=== PATIENT | male | born 1935 | race Caucasian/White ===

== ENCOUNTER 2016-07-05 15:13 | Inpatient (IN) | payer MEDICARE, MEDICAID ==
[~2016-07-05] VITALS: Ht 182.9 cm; Wt 90.4 kg
[~2016-07-05 15:13] MED LIST: AZIT500T2 PO; CHOL400T11 PO; DULO20CA PO; GABA-532 PO; GUAI100S11 PO; Hydralazine Hcl PO; Ipratropium Bromide NEB; LEVA1.2524 IH; MECL-118 PO; NEBI5TAB8 PO; PRED2.5T PO; PRED20TA GT; PRED20TA PO; PRED50TA PO; PRED5TAB48 PO; ROSU20TA PO; TAMS0.4C34 PO; TRAM50TA2 PO
--- NOTE | 2016-07-05 15:25 | NUR ---
aaox3, bibra from home c/o hypertension, and blurry vision since this am, took medication for hypertension to no relief. skin is warm and dry. denies any chest pain. neuro intact. bilateral strong and equal charge preparation technician. face symmetrical. Max at BS for eval.
--- NOTE | 2016-07-05 15:26 | NUR ---
Patient assisted to hospital gown, placed on monitor. Will continuously monitor the patient.
[2016-07-05] MEDS ORDERED: hydrALAZINE HCL IV 20 MG VIAL ONE ×2 (15:30→16:28)
[2016-07-05] MEDS ORDERED: hydrALAZINE HCL IV 20 MG VIAL IV ONE ×2 (15:30→16:30)
[2016-07-05 15:33] LABS: BASOPHILS % (AUTO) 0.5 % (0.0-2.0); EOSINOPHILS # (AUTO) 0.2 /CMM (0.0-0.7); EOSINOPHILS % (AUTO) 2.8 % (0.0-6.0); HEMATOCRIT 39 % (39-51); HEMOGLOBIN 12.5 g/dL (13.5-17.5); LYMPHOCYTES # (AUTO) 1.3 /CMM (0.8-4.8); LYMPHOCYTES % (AUTO) 19.2 % (20.0-44.0); MEAN CORPUSCULAR HEMOGLOBIN 28 PG (26.0-33.0); MEAN CORPUSCULAR HGB CONC 32 g/dl (31.0-36.0); MEAN CORPUSCULAR VOLUME 87 fL (80-96); MONOCYTES # (AUTO) 0.7 /CMM (0.1-1.30); MONOCYTES % (AUTO) 9.4 % (2.0-12.0); NEUTROPHILS # (AUTO) 4.7 /CMM (1.8-8.9); NEUTROPHILS % (AUTO) 68.1 % (43.0-81.0); PLATELET COUNT (AUTO) 189 /CMM (150-450); RDW COEFFICIENT OF VARIATION 16.7 (11.5-15.0)
[2016-07-05 15:59] LABS: CALCIUM, SERUM 8.8 mg/dL (8.5-10.1); CARBON DIOXIDE 32 mmol/L (21-32); CHLORIDE 106 mmol/L (98-107); CREATININE 1.4 mg/dL (0.6-1.3); GLUCOSE 95 mg/dL (74-106); POTASSIUM 4.7 mmol/L (3.5-5.1); SODIUM SERUM 139 mmol/L (136-145); UREA NITROGEN, BLOOD 23 mg/dL (7-18)
--- NOTE | 2016-07-05 15:59 | NUR ---
RETORT OPERATOR AT BEDSIDE
[2016-07-05 16:04] LABS: PROTHROMBIN TIME 10.4 SECS (9.5-12.7)
[2016-07-05 16:07] LABS: TROPONIN I < 0.017 ng/mL (0.00-0.056)
[2016-07-05] MEDS ORDERED: AMLODIPINE BESYLATE 5 MG TABLET ONE (16:28)
[2016-07-05] MEDS ORDERED: AMLODIPINE BESYLATE 5 MG TABLET PO ONE (16:30)
--- NOTE | 2016-07-05 16:30 | NUR ---
Patient is resting comfortably in bed with eyes closed. Easily aroused. VSS
--- NOTE | 2016-07-05 17:22 | NUR ---
IV removed. Catheter intact and site benign. Pressure and 4x4 applied to site. No bleeding noted.Patient discharged to home in stable condition. Written and verbal after care instructions given. Patient verbalizes understanding of instruction.
--- NOTE | 2016-07-05 17:30 | NUR ---
Patient came out of the restroom and states that he doesn't feel well. Patient was assisted back to room. ER MD made aware. Current BP is 203/105
[2016-07-05] MEDS ORDERED: LABETALOL 20 MG/4 ML VIAL ONE (17:46)
[2016-07-05] MEDS ORDERED: ALBUTEROL FS 2.5 MG/3 ML VIAL.NEB ONE (17:57)
[2016-07-05] MEDS ORDERED: IPRATROPIUM NEB FS 0.5 MG/2.5 ML AMPUL.NEB ONE (17:57)
[2016-07-05] MEDS ORDERED: LABETALOL 20 MG/4 ML VIAL IV ONE (18:00)
[2016-07-05] MEDS ORDERED: IPRATROPIUM NEB FS 0.5 MG/2.5 ML AMPUL.NEB NEB ONE (18:00)
[2016-07-05] MEDS ORDERED: ALBUTEROL FS 2.5 MG/3 ML VIAL.NEB NEB ONE (18:00)
[2016-07-05] MEDS ORDERED: NEBI5TAB8 PO (18:03)
[2016-07-05] MEDS ORDERED: ERGO50003 PO (18:03)
[2016-07-05] MEDS ORDERED: CYAN1TAB4 PO (18:08)
[2016-07-05] MEDS ORDERED: DEXL30CA3 PO (18:08)
[2016-07-05] MEDS ORDERED: MELO-264 PO (18:08)
[2016-07-05] MEDS ORDERED: PRAM0.253 PO (18:08)
[2016-07-05] MEDS ORDERED: MEMA7CAP PO (18:08)
[2016-07-05] MEDS ORDERED: MONT10TA22 PO (18:08)
[2016-07-05] MEDS ORDERED: VORT10TA PO (18:10)
--- NOTE | 2016-07-05 18:10 | NUR ---
BREATHING TREATMENT AT
[2016-07-05] MEDS ORDERED: UMEC62.5 IH (18:11)
[2016-07-05] MEDS ORDERED: FLUT1BLS IH (18:11)
--- NOTE | 2016-07-05 19:02 | NUR ---
REPORT GIVEN GAYATRI STOUT FOR [facility] TELE 325-2
--- NOTE | 2016-07-05 19:05 | NUR ---
REPORT GIVEN TO GAYATRI QUINTANILLA FOR [facility].
--- NOTE | 2016-07-05 19:06 | NUR ---
RECEIVED REPORT FROM GAYATRI BRENNAN FOR CONTINUE OF CARE.
--- NOTE | 2016-07-05 19:16 | NUR ---
Madison steiner in [facility] - 07/05/16 at [address] LOONEY ON THE PHONE WITH DR ÓSCAR RUIZ
--- NOTE | 2016-07-05 19:18 | NUR ---
Madison steiner in [facility] - 07/05/16 at [address] LOONEY ON THE PHONE WITH DR MARISSA SANTORO
[2016-07-05] MEDS ORDERED: ZOLPIDEM TARTRATE 5 MG TABLET PO PRN (19:30)
[2016-07-05] MEDS ORDERED: Z GUARD REMEDY 2 OZ OINT TP PRN (19:30)
[2016-07-05] MEDS ORDERED: MAG HYDROX/AL HYDROX/SIMETH 30 ML UDC PO PRN (19:30)
[2016-07-05] MEDS ORDERED: ONDANSETRON HCL/PF 4 MG/2 ML VIAL IVP PRN (19:30)
[2016-07-05] MEDS ORDERED: ENOXAPARIN SODIUM 40 MG/0.4 ML DISP.SYRIN SQ SCH (19:30)
[2016-07-05] MEDS ORDERED: CLONIDINE HCL 0.1 MG TABLET PO PRN (19:30)
[2016-07-05] MEDS ORDERED: MAGNESIUM HYDROXIDE 30 ML UDC PO PRN (19:30)
[2016-07-05] MEDS ORDERED: HYDROCODONE/APAP 5/325MG 1 EACH TABLET PO PRN (19:30)
[2016-07-05 20:00] VITALS: BP 148/77
--- NOTE | 2016-07-05 20:08 | NUR ---
PT TRANSFERED PER [facility]S PROTOCOL.
[2016-07-05] MEDS ORDERED: ENOXAPARIN SODIUM 40 MG/0.4 ML DISP.SYRIN SQ ONE (20:28)
[2016-07-05] MEDS ORDERED: ATORVASTATIN 40 MG TABLET ONE (20:28)
[2016-07-05] MEDS ORDERED: ACETAMINOPHEN 325 MG TABLET ONE (20:29)
[2016-07-05] MEDS ORDERED: CARVEDILOL 6.25 MG TABLET ONE (20:31)
[2016-07-05] MEDS: ACETAMINOPHEN 325 MG TABLET PO PRN (20:41)
[2016-07-05] MEDS: ATORVASTATIN 40 MG TABLET PO SCH (20:41)
[2016-07-05] MEDS ORDERED: CARVEDILOL 6.25 MG TABLET PO SCH (21:00)
--- NOTE | 2016-07-05 21:25 | NUR ---
SEEN BY DR. CANTRELL, PATIENT HAS NO DISTRESS, DENIES CHEST PAIN.
[2016-07-05] MEDS ORDERED: IPRATROPIUM NEB FS 0.5 MG/2.5 ML AMPUL.NEB NEB PRN (22:00)
[2016-07-05 22:37] LABS: ABG BASE EXCESS 2.2 mmol/L; ABG OXYGEN SATURATION 91.1 % (92.0-98.5); ABG PCO2 41.1 mmHg (35.0-45.0); ABG PH 7.431 (7.350-7.450); ABG PO2 62.4 mmHg (75.0-100.0); ABG TOTAL HEMOGLOBIN 12.7 G/dL (13.5-18.0); AaDO2 38.1 mmHg; COHb 0.8 % (0.5-1.5); MetHb 0.7 % (0.0-1.5); O2Hb 89.7 % (94.0-97.0); SITE, ABG Right Radial; VENT MODE, BG Room Air
[2016-07-06] VITALS: BP 122/63
[2016-07-06] MEDS ORDERED: hydrALAZINE HCL 10 MG TABLET ONE (00:06)
--- NOTE | 2016-07-06 00:28 | NUR ---
HYDRALAZINE 50 MG PO HELD, BP 109/65 HR 69, PATIENT ALSO REFUSED STATING "MY BLOOD PRESSURE IS OK, I DON'T WANT IT TO BE SO LOW".
[2016-07-06 04:23] VITALS: BP 122/63
--- NOTE | 2016-07-06 06:00 | NUR ---
PATIENT GIVEN HYDRALAZINE 50 MG PO REQUESTED FOR ELEVATED BP
[2016-07-06] MEDS: hydrALAZINE HCL 10 MG TABLET PO SCH ×2 (06:14)
--- NOTE | 2016-07-06 06:39 | NUR ---
PATIENT IN BED, ALERT AND ORIENTED X4, CALM, NO SOB, NO DISTRESS, DENIES CHEST PAIN, ANY PAIN AT THIS TIME, ALL DUE MEDICATIONS GIVEN, KEPT SAFE AND COMFORTABLE, CALL LIGHT WITHIN REACH.
[2016-07-06 07:00] VITALS: BP 140/92
[2016-07-06] MEDS ORDERED: ENOXAPARIN SODIUM 40 MG/0.4 ML DISP.SYRIN SQ SCH (07:21)
[2016-07-06 07:41] LABS: BASOPHILS % (AUTO) 0.4 % (0.0-2.0); EOSINOPHILS # (AUTO) 0.3 /CMM (0.0-0.7); EOSINOPHILS % (AUTO) 4.3 % (0.0-6.0); HEMATOCRIT 38 % (39-51); HEMOGLOBIN 12.2 g/dL (13.5-17.5); LYMPHOCYTES # (AUTO) 1.2 /CMM (0.8-4.8); MEAN CORPUSCULAR HEMOGLOBIN 28 PG (26.0-33.0); MEAN CORPUSCULAR HGB CONC 33 g/dl (31.0-36.0); MEAN CORPUSCULAR VOLUME 87 fL (80-96); MONOCYTES # (AUTO) 0.6 /CMM (0.1-1.30); MONOCYTES % (AUTO) 9.2 % (2.0-12.0); NEUTROPHILS # (AUTO) 4.5 /CMM (1.8-8.9); NEUTROPHILS % (AUTO) 68.1 % (43.0-81.0); PLATELET COUNT (AUTO) 178 /CMM (150-450); RED BLOOD CELL COUNT(AUTO) 4.33 MIL/uL (4.5-6.0); WHITE BLOOD COUNT (AUTO) 6.6 K/uL (4.3-11.0)
--- NOTE | 2016-07-06 07:45 | NUR ---
LOGISTICS OPERATIONS DIRECTOR OPENING NOTE PATIENT IS ALERT AND ORIENTED x4. NO PAIN AT THIS TIME. NO SOB OR DISTRESS NOTED. IV INTACT AND PATENT NO REDNESS OR SWELLING NOTED. CALL LIGHT WITHIN REACH. SAFETY MEASURES IMPLEMENTED. ABLE TO COMMUNICATE NEEDS. ON 1L/MIN OF OXYGEN VIA NASAL CANNULA. ON TELE MONITORING. WILL CONTINUE TO MONITOR
[2016-07-06] MEDS: ACETAMINOPHEN 325 MG TABLET PO PRN (08:04)
[2016-07-06] MEDS: TAMSULOSIN 0.4 MG CAP.SR.24H PO SCH (08:05)
[2016-07-06] MEDS: PANTOPRAZOLE 40 MG TABLET.DR PO SCH (08:05)
[2016-07-06] MEDS: MONTELUKAST SODIUM (10MG) 10 MG TABLET PO SCH (08:05)
[2016-07-06] MEDS: MEMANTINE HCL 5 MG TABLET PO SCH (08:05)
[2016-07-06] MEDS: CARVEDILOL 12.5 MG TABLET PO SCH ×2 (08:06→21:03)
[2016-07-06] MEDS: AMLODIPINE BESYLATE 5 MG TABLET PO SCH (08:06)
[2016-07-06 08:08] LABS: THYROID STIMULATING HORMONE 1.74 uIU/mL (0.358-3.74)
[2016-07-06 08:50] LABS: CREATININE 1.4 mg/dL (0.6-1.3); MAGNESIUM 2.2 mg/dL (1.8-2.4); PHOSPHORUS 3.1 mg/dL (2.5-4.9); POTASSIUM 4.6 mmol/L (3.5-5.1)
--- NOTE | 2016-07-06 09:47 | NUR ---
MS RN NOTE PATIENT IS BEING TAKEN TO X-RAY TO HAVE CHEST X-RAY DONE. PATIENT IS STABLE. VITALS ARE STABLE. NO SOB OR DISTRESS NOTED. NO PAIN AT THIS TIME. WILL CONTINUE TO MONITOR PATIENT WHEN HE RETURNS FROM X-RAY
--- NOTE | 2016-07-06 10:00 | NUR ---
MS RN NOTE PATIENT IS BACK FROM X-RAY. PATIENT IS STABLE NO PAIN NOTED AT THIS TIME. NO SOB OR DISTRESS NOTED. WILL CONTINUE TO MONITOR PATIENT
--- NOTE | 2016-07-06 10:15 | NUR ---
MS RN NOTE PATIENT IS NO LONGER ON TELE MONITORING. WILL ENDORSE TO WARD SUPERVISOR NURSE
[2016-07-06] MEDS: ALBUTEROL FS 2.5 MG/0.5 ML VIAL.NEB NEB PRN (10:33)
[2016-07-06] MEDS: hydrALAZINE HCL 50 MG TABLET PO SCH ×2 (12:15→17:51)
[2016-07-06 16:44] VITALS: BP 122/68
[2016-07-06] MEDS: PRAMIPEXOLE DI-HCL 0.25 MG TABLET PO SCH (17:51)
--- NOTE | 2016-07-06 18:45 | NUR ---
MS RN CLOSING NOTE PATIENT IS ALERT AND ORIENTED x4. NO PAIN AT THIS TIME. NO SOB OR DISTRESS NOTED. ALL DUE MEDICATION GIVEN ORDERED. CALL LIGHT WITHIN REACH AT ALL TIMES. SAFETY MEASURES IMPLEMENTED. ABLE TO COMMUNICATE NEEDS. AMBULATES WITH ASSISTANCE. IV INTACT AND PATENT NO REDNESS OR SWELLING NOTED. WILL ENDORSE TO SVP GROUP DIRECTOR NURSE
[2016-07-06 20:00] VITALS: BP 128/71
[2016-07-06] MEDS: ENOXAPARIN SODIUM 40 MG/0.4 ML DISP.SYRIN SQ SCH (21:04)
[2016-07-06] MEDS: ATORVASTATIN 40 MG TABLET PO SCH (21:05)
[2016-07-06] MEDS: DOXAZOSIN MESYLATE (1 MG) 1 MG TABLET PO SCH (22:00)
--- NOTE | 2016-07-06 22:00 | NUR ---
PATIENT AWAKE AND ALLERT REFUSED CORDURA 2 MG D/T LOW BP OFFERED .
--- NOTE | 2016-07-07 | NUR ---
PATIENT AWAKE AND ALERT .REFUSED APRESOLINE 50MG DUE TO LOW BP 105/53
[2016-07-07] MEDS: hydrALAZINE HCL 50 MG TABLET PO SCH ×5 (05:48→23:28)
[2016-07-07 07:24] LABS: BASOPHILS % (AUTO) 0.3 % (0.0-2.0); EOSINOPHILS # (AUTO) 0.2 /CMM (0.0-0.7); EOSINOPHILS % (AUTO) 3.3 % (0.0-6.0); HEMATOCRIT 37 % (39-51); HEMOGLOBIN 12.1 g/dL (13.5-17.5); LYMPHOCYTES # (AUTO) 1.1 /CMM (0.8-4.8); LYMPHOCYTES % (AUTO) 16.5 % (20.0-44.0); MEAN CORPUSCULAR HEMOGLOBIN 28 PG (26.0-33.0); MEAN CORPUSCULAR HGB CONC 33 g/dl (31.0-36.0); MEAN CORPUSCULAR VOLUME 86 fL (80-96); MONOCYTES # (AUTO) 0.6 /CMM (0.1-1.30); MONOCYTES % (AUTO) 9.3 % (2.0-12.0); NEUTROPHILS # (AUTO) 4.7 /CMM (1.8-8.9); NEUTROPHILS % (AUTO) 70.6 % (43.0-81.0); PLATELET COUNT (AUTO) 186 /CMM (150-450); RED BLOOD CELL COUNT(AUTO) 4.31 MIL/uL (4.5-6.0); WHITE BLOOD COUNT (AUTO) 6.7 K/uL (4.3-11.0)
[2016-07-07 07:30] LABS: CREATININE 1.5 mg/dL (0.6-1.3); POTASSIUM 4.2 mmol/L (3.5-5.1)
--- NOTE | 2016-07-07 07:46 | NUR ---
MS/RN OPENING NOTE PT. IS LYING IN BED A&OX4. NO S/S OF DISTRESS, NO SOB, BREATHING ON ROOM AIR UNLABORED. BED IS IN LOW POSITION, 2 SIDE RAILS UP, CALL LIGHT WITHIN REACH, URINAL NEAR BEDSIDE, AND ALL NEEDS ATTENDED TO. REPORT GIVEN BY BULB BRANDER NURSE.
[2016-07-07 08:00] VITALS: BP_SYST 117; BP_SYST 122; BP_DIAS 72; BP_DIAS 78
[2016-07-07] MEDS: CARVEDILOL 12.5 MG TABLET PO SCH ×2 (09:00→21:42)
[2016-07-07] MEDS: AMLODIPINE BESYLATE 5 MG TABLET PO SCH (09:00)
[2016-07-07] MEDS: PANTOPRAZOLE 40 MG TABLET.DR PO SCH (10:00)
[2016-07-07] MEDS: MEMANTINE HCL 5 MG TABLET PO SCH (10:00)
[2016-07-07] MEDS: MONTELUKAST SODIUM (10MG) 10 MG TABLET PO SCH (10:00)
[2016-07-07] MEDS: TAMSULOSIN 0.4 MG CAP.SR.24H PO SCH (10:00)
[2016-07-07] MEDS: ALBUTEROL FS 2.5 MG/0.5 ML VIAL.NEB NEB PRN (12:55)
--- NOTE | 2016-07-07 13:50 | NUR ---
MS/RN RESPIRATORY THERAPIST INFORMED THAT PT. HAS FLUID IN LUNG OF THE RIGHT LOWER LOBE, AND PT'S BNP IS ABOVE NORMAL LIMIT. NOTIFIED AND DISCUSSED FINDINGS WITH MD, NO NEW ORDERS WERE GIVEN.
[2016-07-07] MEDS ORDERED: ACETYLCYSTEINE 10% 3,000 MG/30 ML VIAL PO SCH (14:30)
[2016-07-07 16:00] VITALS: BP 116/81
[2016-07-07] MEDS: PRAMIPEXOLE DI-HCL 0.25 MG TABLET PO SCH (17:37)
--- NOTE | 2016-07-07 18:00 | NUR ---
MS/RN ULTRASOUND OF THE LEFT BREAST PT. REFUSED BREAST ULTRASOUND PROCEDURE.
[2016-07-07 19:00] VITALS: BP 130/92
--- NOTE | 2016-07-07 19:30 | NUR ---
MS/RN CLOSING NOTE PT. IS LYING IN BED A&OX4. NO S/S OF SOB, BREATHING UNLABORED ON ROOM AIR. NO S/S OF DISTRESS. BED IS IN LOW POSITION, 2 SIDE RAILS UP, CALL LIGHT WITHIN REACH, AND ALL NEEDS ATTENDED TO. WILL ENDORSE REPORT TO STORE ADMINISTRATOR NURSE.
[2016-07-07 20:00] VITALS: BP 130/92
[2016-07-07] MEDS: DOXAZOSIN MESYLATE (1 MG) 1 MG TABLET PO SCH (21:42)
[2016-07-07] MEDS: ATORVASTATIN 40 MG TABLET PO SCH (21:42)
[2016-07-07] MEDS: ENOXAPARIN SODIUM 40 MG/0.4 ML DISP.SYRIN SQ SCH (21:43)
[2016-07-08] MEDS: hydrALAZINE HCL 50 MG TABLET PO SCH ×2 (05:43→12:00)
--- NOTE | 2016-07-08 05:45 | NUR ---
MS/RN NOTES b/p check with diastolic b/p less than 60. sbp 125 .
--- NOTE | 2016-07-08 07:05 | NUR ---
MS/RN OPENING NOTES PATIENT IN BED, ASLEEP BU AROUSES. NO S/S OF SOB OR DISTRESS. NO PAIN VERBALIZED. B/P CHECK, WILL ENDORSE TO AM RN REGARDING PLAN OF CARE. FAMILY REQUESTING TO BE DC.
[2016-07-08 08:00] VITALS: BP 156/96
--- NOTE | 2016-07-08 08:02 | NUR ---
Patient rounds and refuses to sign for medical records release for Doctor Jf MD, Cardiology and Doctor Marti MD with [facility] as requested by Doctor Parks. Claims machine sign writer made patient sick because so much blood was taken. Does not want to see Doctor Parks. Only wants to see Doctor Garza. Doctor Garza notified and will round on patient.
[2016-07-08 08:18] LABS: BASOPHILS % (AUTO) 0.3 % (0.0-2.0); EOSINOPHILS # (AUTO) 0.2 /CMM (0.0-0.7); EOSINOPHILS % (AUTO) 3.4 % (0.0-6.0); HEMATOCRIT 37 % (39-51); HEMOGLOBIN 12.1 g/dL (13.5-17.5); LYMPHOCYTES # (AUTO) 1.3 /CMM (0.8-4.8); LYMPHOCYTES % (AUTO) 19.9 % (20.0-44.0); MEAN CORPUSCULAR HEMOGLOBIN 28 PG (26.0-33.0); MEAN CORPUSCULAR HGB CONC 32 g/dl (31.0-36.0); MEAN CORPUSCULAR VOLUME 87 fL (80-96); MONOCYTES # (AUTO) 0.7 /CMM (0.1-1.30); MONOCYTES % (AUTO) 11.1 % (2.0-12.0); NEUTROPHILS # (AUTO) 4.2 /CMM (1.8-8.9); NEUTROPHILS % (AUTO) 65.3 % (43.0-81.0); PLATELET COUNT (AUTO) 174 /CMM (150-450); RDW COEFFICIENT OF VARIATION 17.1 (11.5-15.0); WHITE BLOOD COUNT (AUTO) 6.4 K/uL (4.3-11.0)
[2016-07-08 08:55] LABS: BILIRUBIN,TOTAL 0.5 mg/dL (0.2-1.0); CREATININE 1.7 mg/dL (0.6-1.3); POTASSIUM 4.4 mmol/L (3.5-5.1); TOTAL PROTEIN, SERUM 6.4 g/dL (6.4-8.2)
[2016-07-08 08:58] LABS: THYROID STIMULATING HORMONE 1.674 uIU/mL (0.358-3.74)
[2016-07-08] MEDS: CARVEDILOL 12.5 MG TABLET PO SCH ×2 (09:00→09:53)
[2016-07-08] MEDS: AMLODIPINE BESYLATE 5 MG TABLET PO SCH ×2 (09:00→09:52)
[2016-07-08] MEDS: MONTELUKAST SODIUM (10MG) 10 MG TABLET PO SCH (09:42)
[2016-07-08] MEDS: MEMANTINE HCL 5 MG TABLET PO SCH (09:42)
[2016-07-08] MEDS: PANTOPRAZOLE 40 MG TABLET.DR PO SCH (09:43)
[2016-07-08] MEDS: TAMSULOSIN 0.4 MG CAP.SR.24H PO SCH (09:43)
--- NOTE | 2016-07-08 09:55 | NUR ---
Patient conversation with daughter, Katie. Notes that patient would like to take his own bp med bystolic med. Notified daughter ok to use if verified with md today. Says go ahead and give presumed substitutes on emar at this time. Investigations Manager attempt to pass med. Patient took half dose and wants to take other half of am dose at later time. Investigations Manager recheck of bp and pulse at this time per patient request.
[2016-07-08 09:57] VITALS: BP 148/67
[2016-07-08] MEDS ORDERED: AMLO5TAB2 PO (10:56)
[2016-07-08] MEDS ORDERED: DOXA1TAB17 PO (10:56)
--- NOTE | 2016-07-08 12:10 | NUR ---
PATIENT DISCHARGE AND GIVEN INSTRUCTION. NO IV PRESENT. SITE D/C PREVIOUS TO SHIFT BEGINNING. PATIENT AMBULATORY FROM UNIT. GIVEN INFORMATION WITH PRESCRIPTIONS AND MEDICATION RECONCILIATION, CT CD, EKG CD, AND ALL LABWORK WITH EXIT CARE. INVENTORY OF PERSONAL BELONGINGS. PATIENT GIVEN DOCTOR LEVY PHONE NUMBER AND ADDRESS FOR FOLLOW UP IN ONE WEEK. WILL SEE DOCTOR KOLTON FOR DIZZINESS AND BLURRY VISION. AWARE OF RISK OF RENAL INSUFFICIENCY. VERBALIZES UNDERSTANDING OF INSTRUCTIONS GIVEN.
== END 2016-07-08 12:00 | disposition home or self-care (01) | DRG 77 ==
LOC: ER 15:15 → TELE 19:26 → MED 07-06 09:49
DX: I67.4 Hypertensive encephalopathy (principal); N17.0 Acute kidney failure with tubular necrosis; I12.9 Hypertensive chronic kidney disease with stage 1 through stage 4 chronic kidney disease, or unspecified chronic kidney disease; N18.9 Chronic kidney disease, unspecified; E11.22 Type 2 diabetes mellitus with diabetic chronic kidney disease; I25.10 Atherosclerotic heart disease of native coronary artery without angina pectoris; I16.0 Hypertensive urgency; E78.5 Hyperlipidemia, unspecified; D64.9 Anemia, unspecified; N40.0 Benign prostatic hyperplasia without lower urinary tract symptoms; Z85.118 Personal history of other malignant neoplasm of bronchus and lung; Z87.891 Personal history of nicotine dependence; J44.9 Chronic obstructive pulmonary disease, unspecified; R51 Headache; D63.8 Anemia in other chronic diseases classified elsewhere; R91.8 Other nonspecific abnormal finding of lung field
CPT/HCPCS: 36415; 36600; 70450-TC; 71010-TC; 71250-TC; 80048-TC; 80053-TC; 80061-TC; 82728-TC; 82746; 83540-TC; 83735-TC; 83880; 84100-TC; 84439-TC; 84443-TC; 84484-TC; 85025-TC; 85730-TC; 87081-TC; 93307-TC; 94799-TC; 97001-TC; A4606; J0360; J1650; J3490; Z7610

== ENCOUNTER 2016-11-20 11:48 | Inpatient (IN) | payer MEDICARE, MEDICAID ==
[~2016-11-20] VITALS: Ht 182.9 cm; Wt 90.7 kg
[~2016-11-20 11:48] MED LIST changes: +AMLO5TAB2 PO; -AZIT500T2 PO; -CHOL400T11 PO; +CYAN1TAB4 PO; +DEXL30CA3 PO; +DOXA1TAB17 PO; -DULO20CA PO; +ERGO50003 PO; +FLUT1BLS IH; -GABA-532 PO; -GUAI100S11 PO; -Hydralazine Hcl PO; -Ipratropium Bromide NEB; -LEVA1.2524 IH; -MECL-118 PO; +MELO-264 PO; +MEMA7CAP PO; +MONT10TA22 PO; +PRAM0.253 PO; -PRED2.5T PO; -PRED20TA GT; -PRED20TA PO; -PRED50TA PO; -PRED5TAB48 PO; +UMEC62.5 IH; +VORT10TA PO
--- NOTE | 2016-11-20 12:12 | NUR ---
PATIENT PRESENTS TO ER C/O HIGH BLOOD PRESSURE SINCE YESTERDAY 190/119. CURRENTLY BP IS 170/100. A/OX 4. NO SOB. BREATHING EVEN AND UNLABORED. SAFETY AND COMFORT MEASURES IN PLACE. AWAITING MD ORDERS.
[2016-11-20 12:50] LABS: BASOPHILS # (AUTO) 0.8 /CMM (0.0-0.2); BASOPHILS % (AUTO) 4.5 % (0.0-2.0); EOSINOPHILS # (AUTO) 0.1 /CMM (0.0-0.7); EOSINOPHILS % (AUTO) 0.7 % (0.0-6.0); HEMATOCRIT 43 % (39-51); HEMOGLOBIN 13.7 g/dL (13.5-17.5); LYMPHOCYTES # (AUTO) 1.4 /CMM (0.8-4.8); LYMPHOCYTES % (AUTO) 7.8 % (20.0-44.0); MEAN CORPUSCULAR HEMOGLOBIN 28 PG (26.0-33.0); MEAN CORPUSCULAR HGB CONC 32 g/dl (31.0-36.0); MEAN CORPUSCULAR VOLUME 87 fL (80-96); MONOCYTES # (AUTO) 1.7 /CMM (0.1-1.30); MONOCYTES % (AUTO) 9.8 % (2.0-12.0); NEUTROPHILS # (AUTO) 13.3 /CMM (1.8-8.9); NEUTROPHILS % (AUTO) 77.2 % (43.0-81.0); PLATELET COUNT (AUTO) 207 /CMM (150-450); RDW COEFFICIENT OF VARIATION 15.2 (11.5-15.0); RED BLOOD CELL COUNT(AUTO) 4.94 MIL/uL (4.5-6.0); WHITE BLOOD COUNT (AUTO) 17.3 K/uL (4.3-11.0)
[2016-11-20 12:59] LABS: CALCIUM, SERUM 9.1 mg/dL (8.5-10.1); CARBON DIOXIDE 27 mmol/L (21-32); CHLORIDE 102 mmol/L (98-107); CREATININE 1.4 mg/dL (0.6-1.3); GLUCOSE 104 mg/dL (74-106); POTASSIUM 4.1 mmol/L (3.5-5.1); SODIUM SERUM 138 mmol/L (136-145); UREA NITROGEN, BLOOD 34 mg/dL (7-18)
[2016-11-20 13:04] LABS: INR 0.92 (0.87-1.13); PROTHROMBIN TIME 9.6 SECS (9.5-12.7)
[2016-11-20 13:05] LABS: ALANINE AMINOTRANSFERASE 17 U/L (12-78); ALBUMIN 3.5 g/dL (3.4-5.0); ALKALINE PHOSPHATASE 85 U/L (46-116); ASPARTATE AMINOTRANSFERASE 19 U/L (15-37); BILIRUBIN,DIRECT 0.1 mg/dL (0.0-0.2); BILIRUBIN,TOTAL 0.6 mg/dL (0.2-1.0); TOTAL PROTEIN, SERUM 7.2 g/dL (6.4-8.2)
--- NOTE | 2016-11-20 13:06 | NUR ---
NEW IV STARTED ON RFA, 20 G.
[2016-11-20 13:07] LABS: TROPONIN I 0.033 ng/mL (0.00-0.056)
--- NOTE | 2016-11-20 13:28 | NUR ---
PAGED COST RECORDER PANEL
[2016-11-20] MEDS ORDERED: OLME40TA3 PO (13:47)
[2016-11-20] MEDS ORDERED: PRED20TA PO (13:47)
[2016-11-20] MEDS ORDERED: PRAM0.122 PO (13:47)
--- NOTE | 2016-11-20 14:06 | NUR ---
PATIENT ASSIGNED TO 304-2
--- NOTE | 2016-11-20 14:40 | NUR ---
PATIENT TRANSPORTED TO [facility] VIA [facility]S PROTOCOL. RNPEREZ TO PROVIDE ABNDAR.
--- NOTE | 2016-11-20 15:00 | NUR ---
DOCTOR NATUROPATHICDEHYDRATION PLANT OPERATOR NOTES ADMITTED PT FROM ER WITH DX OF ACCELERATED HTN.PT IS ALERT AND ORIENTED X4.VERBALLY RESPONSIVE.AMBULATES WITH STANDBY ASSIST.PT C/O HEADACHE.WILL GIVE PAIN MEDS PRN.WITH BRP.DAUGHTER,JALYN AND FRIEND AT BEDSIDE.PT STATED THAT THE LEFT UPPER LIP SCAB WAS DUE TO BIOPSY DONE AND LFA SCAB/BRUISE CAUSED BY BANGING IT ACCIDENTALLY TO THE DOOR AND PT STATED THAT HE IS TAKING ASPIRIN WHICH IS THE REASON WHY HE GET BRUISED SO EASILY.DENIES ANY DISTRESS.CALL LIGHT PLACED WITHIN REACH.WILL MONITOR.AWAITING FOR ADMISSION ORDERS.
[2016-11-20 16:00] VITALS: BP 158/83
--- NOTE | 2016-11-20 20:00 | NUR ---
TELE/RN RECEIVE PATIENT AWAKE, ALERT. ORIENTED, COMFORTABLE, NO C/O PAIN, NO DISTRESS NOTED, CALL LIGHT IN REACH. WILL MONITOR BLOOD PRESSURE.
--- NOTE | 2016-11-20 20:00 | NUR ---
TELE/RN RECEIVE PATIENT AWAKE, ALERT, NON VERBAL, APPEAR COMFORTABLE, NO SIGNS OF DISTRESS NOTED, CALL LIGHT IN REACH, WILL MONITOR.
[2016-11-20 20:04] VITALS: BP 149/75
[2016-11-20 23:45] VITALS: BP 160/87
[2016-11-21 04:24] VITALS: BP 153/81
--- NOTE | 2016-11-21 06:35 | NUR ---
TELE/RN PATIENT AWAKE AT THIS TIME, COMFORTABLE, BP 151/91. PATIENT HAD A GOOD NIGHT SLEEP THE WHOLE SHIFT. ALL NEEDS ATTENDED AT THIS TIME. WILL CONTINUE TO MONITOR.
--- NOTE | 2016-11-21 07:10 | NUR ---
TELE-RN PT IS IN BED, RESTING COMFORTABLY. PT ON RA, RESPIRATIONS ARE EVEN AND UNLABORED. IV ON RFA INTACT AND PATENT, SL. SAFETY MEASURES ARE IN PLACE, CALL LIGHT IS IN REACH. WILL CONTINUE TO MONITOR.
[2016-11-21 08:00] VITALS: BP 146/55
[2016-11-21 12:00] VITALS: BP 119/68
[2016-11-21 12:16] LABS: BASOPHILS % (AUTO) 0.3 % (0.0-2.0); EOSINOPHILS # (AUTO) 0.1 /CMM (0.0-0.7); EOSINOPHILS % (AUTO) 0.8 % (0.0-6.0); HEMATOCRIT 43 % (39-51); HEMOGLOBIN 13.6 g/dL (13.5-17.5); LYMPHOCYTES # (AUTO) 0.9 /CMM (0.8-4.8); LYMPHOCYTES % (AUTO) 5.4 % (20.0-44.0); MEAN CORPUSCULAR HEMOGLOBIN 28 PG (26.0-33.0); MEAN CORPUSCULAR HGB CONC 32 g/dl (31.0-36.0); MEAN CORPUSCULAR VOLUME 88 fL (80-96); MONOCYTES # (AUTO) 1.3 /CMM (0.1-1.30); NEUTROPHILS # (AUTO) 13.8 /CMM (1.8-8.9); NEUTROPHILS % (AUTO) 85.5 % (43.0-81.0); PLATELET COUNT (AUTO) 156 /CMM (150-450); RDW COEFFICIENT OF VARIATION 16.4 (11.5-15.0); RED BLOOD CELL COUNT(AUTO) 4.83 MIL/uL (4.5-6.0); WHITE BLOOD COUNT (AUTO) 16.1 K/uL (4.3-11.0)
[2016-11-21 12:29] LABS: ALANINE AMINOTRANSFERASE 16 U/L (12-78); ALBUMIN 3.1 g/dL (3.4-5.0); ALKALINE PHOSPHATASE 83 U/L (46-116); ASPARTATE AMINOTRANSFERASE 12 U/L (15-37); BILIRUBIN,TOTAL 0.8 mg/dL (0.2-1.0); CARBON DIOXIDE 27 mmol/L (21-32); CHLORIDE 104 mmol/L (98-107); CREATININE 1.4 mg/dL (0.6-1.3); GLUCOSE 140 mg/dL (74-106); MAGNESIUM 2.1 mg/dL (1.8-2.4); PHOSPHORUS 3.1 mg/dL (2.5-4.9); POTASSIUM 4.4 mmol/L (3.5-5.1); SODIUM SERUM 139 mmol/L (136-145); UREA NITROGEN, BLOOD 30 mg/dL (7-18)
[2016-11-21 12:32] LABS: CHOLESTEROL 230 mg/dL (<200); HDL CHOLESTEROL 78 mg/dL (40-60); LDL 143 mg/dL (0-99); TRIGLYCERIDES 85 mg/dL (30-150)
[2016-11-21 16:00] VITALS: BP 140/77
--- NOTE | 2016-11-21 18:04 | NUR ---
RN NOTES PT WAS DISCHARGED HOME IN STABLE CONDITION, ACCOMPANIED BY HIS DAUGHTER. DISCHARGE INSTRUCTIONS WERE GIVEN AND PAPER WAS SIGNED. BELONGINGS LIST WAS SIGNED. NEW PRESCRIPTION WAS GIVEN. IV AND ID BAND WAS REMOVED.
== END 2016-11-21 18:00 | disposition home or self-care (01) | DRG 77 ==
LOC: ER 11:50 → UNDOADMIN 14:20 → MED 14:20 → TELE 14:20 → MED 11-21 10:11
PROVIDERS: ADMIT Internal Medicine; ATTEND Internal Medicine
DX: I67.4 Hypertensive encephalopathy (principal); J18.9 Pneumonia, unspecified organism; J44.1 Chronic obstructive pulmonary disease with (acute) exacerbation; E11.22 Type 2 diabetes mellitus with diabetic chronic kidney disease; N18.3 Chronic kidney disease, stage 3 (moderate); I13.10 Hypertensive heart and chronic kidney disease without heart failure, with stage 1 through stage 4 chronic kidney disease, or unspecified chronic kidney disease; I12.9 Hypertensive chronic kidney disease with stage 1 through stage 4 chronic kidney disease, or unspecified chronic kidney disease; D64.9 Anemia, unspecified; Z85.118 Personal history of other malignant neoplasm of bronchus and lung; I25.10 Atherosclerotic heart disease of native coronary artery without angina pectoris; I16.0 Hypertensive urgency; Z88.0 Allergy status to penicillin; Z88.8 Allergy status to other drugs, medicaments and biological substances; Z79.899 Other long term (current) drug therapy; N40.0 Benign prostatic hyperplasia without lower urinary tract symptoms; Z87.891 Personal history of nicotine dependence; E66.9 Obesity, unspecified; E78.5 Hyperlipidemia, unspecified; Z98.890 Other specified postprocedural states
CPT/HCPCS: 36415; 71010-TC; 80048-TC; 80053-TC; 80061-TC; 80076-TC; 82962-TC; 83605-TC; 83735-TC; 84100-TC; 84484-TC; 85025-TC; 85730-TC; 87040-TC; 87081-TC; 93307-TC; A4606; J0696; J1956; J7030; Z7610